=== PATIENT | female | born 1940 | race Caucasian/White ===

== ENCOUNTER 2024-04-02 22:22 | Emergency (ER) | payer MEDICARE, OTHER, SELFPAY ==
--- NOTE | ~2024-04-02 | XR_ITS ---
EXAMINATION: XR ANKLE, LEFT CLINICAL INFORMATION: Fall. Pain. COMPARISON: None available. TECHNIQUE: AP, lateral, and mortise views of the left ankle. FINDINGS: The bony structures are osteopenic. There is an undisplaced fracture of the distal fibula. There is also a undisplaced fracture through the medial tibial/medial tibial plateau. There is moderate soft tissue swelling about the ankle most pronounced laterally. XR/XR ankle LT min 3V IMPRESSION: 1. Fractures of the distal fibula and medial tibial/medial tibial plateau. 2. Osteopenia. 3. Soft tissue swelling.
[2024-04-02 22:55] VITALS: BP 120/86; PULSE 86; RESP 20; TEMP 37; O2SAT 100; BMI 17.6
--- NOTE | 2024-04-03 02:09 | ED_ITS ---
HPI - Extremity Injury (Lower) General Chief Complaint: Extremity Injury, Lower Stated Complaint: Lt ankle inj Time Seen by Provider: 04/03/24 01:50 Source: patient and family Mode of arrival: ambulatory Limitations: no limitations History of Present Illness HPI Narrative: 83 yo female with PMH of hypothyroidism, MS - uses WC does do some transfers and standing lost control of WC and hit left leg against wall no other injuries. Has swelling and pain. MD complaint: ankle injury Onset (ago): hour(s) (few) Injury: Left: ankle Type of Injury: blunt Place: home Severity: moderate Relieving factors: nothing Exacerbating factors: palpation Context: direct blow Associated symptoms: swelling Other symptoms: none Treatments prior to arrival: bandage Related Data Allergies Allergy/AdvReac Type Severity Reaction Status Date / Time sulfamethoxazole Allergy Rash Verified 04/02/24 22:59 [From Bactrim] tetracycline [From Tetracyn] Allergy Anaphylaxis Verified 04/02/24 22:59 trimethoprim [From Bactrim] Allergy Rash Verified 04/02/24 22:59 Review of Systems Review of Systems: Constitutional : No Fever, No Chills ENT/Mouth : No Ear Pain, No Hoarseness, No sore throat Eyes: No Eye Pain, No Swelling, No Redness, No Foreign Body Cardiovascular : No Chest Pain, No SOB Respiratory : No Cough, No Dyspnea Gastrointestinal : No Nausea, No Vomiting, No Diarrhea, No abdominal Pain Genitourinary : No Dysuria, No Hematuria Musculoskeletal : positive joint pain, No Myalgias, pos Joint Swelling Skin : No Skin lacerations, No rash Neuro : No Weakness, No Numbness, No Loss of Consciousness, No Dizziness, No Headache Psych : No Anxiety/Panic, No Depression All other systems reviewed and are negative [facility] Past Medical History Attestation statement: The following information was validated with the patient. Medical History Hypothyroidism Multiple sclerosis Social History Social History (Updated 04/03/24 @ 02:12 by Shanita Naqvi DO) Patient Tobacco Use Status: Never used Tobacco Advance Directives: No Advance Directives Information Provided: Yes Do you have a plan to hurt others: No Plan Physical Exam Vital Signs: Vital Signs: Last Vital Signs Temp 98.6 F 04/02/24 22:55 Pulse 86 04/02/24 22:55 Resp 20 05/13/24 22:55 BP 120/86 04/02/24 22:55 Pulse Ox 100 04/02/24 22:55 O2 Del Method Room Air 04/02/24 22:55 BMI result Body Mass Index 17.6 Appearance: Alert. Oriented X3. No acute distress. Eyes: Pupils equal, round and reactive to light. ENT: Pharynx normal. Neck: Normal inspection. Neck supple. CVS: Normal heart rate and rhythm. Pulses normal. Respiratory: No respiratory distress. Breath sounds normal. Abdomen: Soft and nontender. Skin: Skin warm and dry. Normal skin color. Normal skin turgor. Extremities: No lower extremity edema. L ankle small joint effusion - abrasion superficial lateral malleolus - pulses intact has chronic purpleish toes per patient and no knee or prox fibula ttp Neuro: Oriented X 3. No motor deficit. No sensory deficit. Medications Administered Discontinued Medications Generic Name Dose Route Start Last Admin Trade Name Freq PRN Reason Stop Dose Admin Ibuprofen 400 mg 04/03/24 02:06 04/03/24 02:12 Ibuprofen 400 Mg Tablet PO 04/03/24 02:07 400 mg ONCE ONE Administration Medical Decision Making Medical Decision Making MDM Narrative: 83 yo female with PMH of hypothyroidism, MS - uses WC does do some transfers and standing lost control of WC tonight hit L foot and ankle into wall pain on L ankle NV intact will need coverage of skin tear and will apply splint she is alert and oriented x 3 refusing rehab. She does not need emergent orthopedic surgery but refuses to stay despite mine and 's encouragement. Differential Diagnosis Differential Diagnoses: The differential diagnosis associated with the presentation includes sprain, strain, fracture Admission/Observation Consideration of admission/observation: Escalation of care including admission/observation considered refuses to stay for PT/CM rehab and further evaluation states she is going home tonight Independent Interpretation I performed an independent interpretation of an: Plain X-Ray (tibia and fibula fx) Radiology Impression Discussion of test interpretation with radiology: I have reviewed the radiologist's reading. Independent Historian Clinical information obtained from an independent historian. History obtained from or confirmed by: Spouse External Record Review External record reviewed: Outpatient record Procedures Orthopedic Splinting/Casting Injury #1: Side: left Lower Extremity Injury Location: ankle Lower Extremity Immobilizer: posterior splint and stirrup splint Additional Comments: NV intact covered skin tear with bacitracin and telfa dressing first Discharge Plan Discharge Clinical Impression: Ankle fracture Qualifiers: Encounter type: initial encounter Fracture type: closed Laterality: left Qualified Code(s): S82.892A - Other fracture of left lower leg, initial encounter for closed fracture Patient Disposition: Home, Self-Care Instructions: Ankle Fracture (ED) Additional Instructions: non weight bearing on that ankle. you were offered rehab but declined. return for severe pain, numbness, worsening color to the toes. splint cannot get wet. keep on until you see orthopedics. call orthopedics for appointment in the AM I sent a message to our case management about home VNA FINDINGS: The bony structures are osteopenic. There is an undisplaced fracture of the distal fibula. There is also a undisplaced fracture through the medial tibial/medial tibial plateau. There is moderate soft tissue swelling about the ankle most pronounced laterally. XR/XR ankle LT min 3V IMPRESSION: 1. Fractures of the distal fibula and medial tibial/medial tibial plateau. 2. Osteopenia. 3. Soft tissue swelling. Referrals: Lanette Weaver PA-C [Physician [employer]] - (call to schedule appointment) Print Language: Eritrean
[2024-04-03] MEDS: Ibuprofen 400 MG TABLET PO (02:12)
[2024-04-03 02:56] VITALS: BP 152/52; PULSE 72; RESP 15; TEMP 36.4; O2SAT 95
--- NOTE | 2024-04-03 03:01 | PC.NURSE ---
pt a&ox4, respirations even and unlabored. pt reports driving electric wheelchair into wall at home and reports left ankle pain. pt noted to have left ankle swelling, a skin tare to the left ankle and bruising to all 5 toes. at bedside placing soft cast for patinet. pt educated on not bearing weight to foot. pt assisted into car by this RN.
[2024-04-03 03:12] VITALS: BP 152/52; PULSE 72; RESP 15; TEMP 36.4; O2SAT 95
--- NOTE | 2024-04-03 09:51 | MHC.CM.ED ---
Received case management consult early this morning. Patient came to the ER due to left ankle pain. Found to have an ankle fracture. Did not want to stay but requesting VNA at home. Spoke with patient and her , Bao, via telephone at [phone]. Patient has a history of MS. Will need a wheelchair for mobility. Now has a ankle fracture. PCP verified as Tariq Yeh. Both requesting custodial and physical therapy. Patient has been active with [facility] in the past but is requesting referral to [facility]. Referral made via [facility]. Continue to monitor for d/c needs.
== END 2024-04-03 03:12 | disposition home or self-care (01) ==
PROVIDERS: Emergency Provider Emergency Medicine; PCP Internal Medicine
DX: S82.832A Other fracture of upper and lower end of left fibula, initial encounter for closed fracture (principal); S82.142A Displaced bicondylar fracture of left tibia, initial encounter for closed fracture; W22.8XXA Striking against or struck by other objects, initial encounter; Y93.9 Activity, unspecified; Y92.9 Unspecified place or not applicable; Y99.9 Unspecified external cause status; M25.572 Pain in left ankle and joints of left foot; Z99.3 Dependence on wheelchair
CPT/HCPCS: 29515; 73610; 99283; 99284

== ENCOUNTER 2024-04-05 08:34 | Outpatient (REF) | payer MEDICARE, OTHER, SELFPAY ==
--- NOTE | ~2024-04-05 | XR_ITS ---
EXAMINATION: XR ANKLE, LEFT CLINICAL INFORMATION: Pain in the ankle COMPARISON: X-rays of the left ankle 04/02/2024 TECHNIQUE: AP, lateral, and mortise views of the left ankle. FINDINGS: Nondisplaced medial intra-articular fracture extending through the medial tibial plafond and incomplete distal fracture of the lateral cortex distal fibula redemonstrated unchanged in appearance and alignment. Decreased soft tissue swelling XR/XR ankle LT min 3V IMPRESSION: Nondisplaced intra-articular fracture of the medial tibial plafond and incomplete fracture of the distal fibula redemonstrated unchanged in appearance and alignment.
== END 2024-04-05 08:35 | disposition home or self-care (01) ==
LOC: HO.HOSX 08:34
PROVIDERS: Visit Provider Physician Assistant
DX: S82.842A Displaced bimalleolar fracture of left lower leg, initial encounter for closed fracture (principal)
CPT/HCPCS: 27808; 73610; 99202

== ENCOUNTER 2024-04-05 09:18 | Outpatient (AMB) | payer MEDICARE, OTHER, SELFPAY ==
--- NOTE | 2024-04-05 10:20 | A.OFFVIS_ITS ---
Intake Visit Reasons: FC-LT ankle injury initial encounter for closed fC Intake Note: Lashell is a 83 year old female who presents today for a evaluation of her left ankle fx, DOI 04/03/24. Allergies sulfamethoxazole [From Bactrim] Allergy (Verified 04/02/24 22:59) Rash tetracycline [From Tetracyn] Allergy (Verified 04/02/24 22:59) Anaphylaxis trimethoprim [From Bactrim] Allergy (Verified 04/02/24 22:59) Rash HPI HPI FC-LT ankle injury initial encounter for closed fC: Details: 83-year-old female who presents in the office today, as a new patient, for an evaluation of left ankle pain. Patient presented to the ED on 04/03/2024 status post losing control of her wheelchair causing her to hit her left ankle and foot against the wall. Patient was given coverage (bacitracin and telfa dressing) for a skin tear and placed into a splint. She was encourage to remain non-weight bearing. She was offered rehab and declined. Patient is currently in a wheelchair and does some transfers and standing. Patient has a significant medical history of MS. [facility] Medical History Hypothyroidism Multiple sclerosis Social History (Updated 04/03/24 @ 02:12 by Shanita Naqvi DO) Patient Tobacco Use Status: Never used Tobacco Review of Systems Const All systems reviewed & are unremarkable except as noted in HPI and below Physical Exam Const General: cooperative and no acute distress Orientation/consciousness: patient oriented x3 Resp Effort & Inspection: normal respiratory effort and able to speak in complete sentences Cardio Peripheral pulses: Peripheral pulses 2+ throughout Skin General skin exam: no rashes or lesions noted Neuro General: patient oriented x3 Extrem Other: Left lower extremity: Notable muscle atrophy. Scattered ecchymosis from the anterior proximal tibia scattered to the ankle with severe ecchymosis in all digits. Able to slightly flex and extend. Sensation is diminished on the left side from her from her MS but is reported at baseline and a pedal pulse is intact Office Procedures Casting/Splints [id number] Leg Cast Application Procedure code (CPT) selection complete Fracture Care Fracture Billing Code: Fracture Billing Code Assessment & Plan Assessment & Plan (1) Bimalleolar fracture of left ankle: Code(s): S82.842A - Displaced bimalleolar fracture of left lower leg, initial encounter for closed fracture Category: Medical Plan Ms. Perez is a 83-year-old female who presents in the office today, as a new patient, for an evaluation of left ankle pain. Patient presented to the ED on 04/03/2024 status post losing control of her wheelchair causing her to hit her left ankle and foot against the wall. Patient was given coverage (bacitracin and telfa dressing) for a skin tear and placed into a splint. She was encourage to remain non-weight bearing. She was offered rehab and declined. Patient is currently in a wheelchair and does some transfers and standing. Patient has a significant medical history of MS. A nonstick dressing was applied to the skin tear while in the office today. She will be placed into a custom made short leg cast. Patient was educated on cast maintenance with instructions to keep the cast clean, dry, and intact. However, should the cast become wet, dirty, or there is a concern please call the office immediately for a cast change. She will remain non-weight bearing on the left lower extremity. Follow up will be in 4 weeks with cast off and repeat x-rays, or sooner if needed. Of note: The patient was insistent that she wished to go swimming and would be able to keep the cast dry with plastic wrapping. I strongly opposed this with the patient today and instructed her that she would need to remain out of the pool or hot tubes at this time. X-rays of the left ankle which were obtained while in the office today and were reviewed by me, Lanette Weaver PA-C, redemonstrated a nondisplaced bimalleolar fracture. X-rays of the left ankle, obtained on 04/03/2024, revealed: IMPRESSION: 1. Fractures of the distal fibula and medial tibial/medial tibial plateau. 2. Osteopenia. 3. Soft tissue swelling. Orders: Orders XR ankle LT min 3V Today M25.579 - Pain in unspecified ankle and joints of unspecified foot Patient Instructions: Scribed by Elly Mena biomedical engineering aide, for Lanette Weaver PA-C on 04/05/2024 at 11:00 am, EST. Coding Level of Care Code New Pt Level 4 (84896) Diagnoses Bimalleolar fracture of left ankle S82.842A CPT Codes Casting - CPT: [id number] Leg Cast Application ([id number]) Fracture Care - Fracture Billing Code: Fracture Billing Code ([id number])
== END 2024-04-05 11:05 | disposition home or self-care (01) ==
PROVIDERS: Visit Provider Physician Assistant
DX: S82.842A Displaced bimalleolar fracture of left lower leg, initial encounter for closed fracture (principal)
CPT/HCPCS: 27808; 99204

== ENCOUNTER 2024-04-06 15:47 | Outpatient (AMB) | payer MEDICARE, OTHER, SELFPAY ==
[2024-04-06 15:47] VITALS: BP 108/64; PULSE 78; O2SAT 96; BMI 18.7
--- NOTE | 2024-04-06 15:47 | AM.OFFWIN_ITS ---
Intake Vital Signs 04/06/24 15:47 Height 5 ft 4 in Weight 109 lb BMI 18.7 BP 108/64 Blood Pressure Location Rt brachial Position Sitting Pulse 78 Pulse Source Pulse Oximeter Pulse Oximetry (%) 96 Oxygen Delivery Method Room Air Intake Visit Reasons: TRY OUT PERSON lft shoulder injury pain Intake Note: Pt presents to the office today for c/o left shoulder pain for about a month. Her states that about 3 weeks ago she received a cortisone injection which might have been helping but states yesterday she slipped and hit her shoulder on her wheelchair and states now the pain is worse than before the cortisone injection. Patient Tobacco Use Status: Never used Tobacco Allergies sulfamethoxazole [From Bactrim] Allergy (Verified 04/06/24 15:53) Rash tetracycline [From Tetracyn] Allergy (Verified 04/06/24 15:53) Anaphylaxis trimethoprim [From Bactrim] Allergy (Verified 04/06/24 15:53) Rash HPI HPI Comments History of Present Illness Details 83 y/o female patient who presents to [facility] with c/o left shoulder pain after a fall. She does have chronic shoulder pain, and she is currently receiving Cortisone Injections, last dose 3 weeks ago. [facility] Medical History Hypothyroidism Multiple sclerosis Social History (Updated 04/03/24 @ 02:12 by Shanita Naqvi DO) Patient Tobacco Use Status: Never used Tobacco Review of Systems Const All systems reviewed & are unremarkable except as noted in HPI and below Physical Exam Vital Signs: Last Vital Signs Pulse 78 04/06/24 15:47 BP 108/64 04/06/24 15:47 Pulse Ox 96 04/06/24 15:47 Oxygen Delivery Method Room Air 04/06/24 15:47 BMI result Body Mass Index 18.7 Const General: no acute distress Orientation/consciousness: patient oriented x3 Limitations: wheelchair Neuro General: patient oriented x3 Extrem Right upper extremity: normal to inspection and full ROM Left upper extremity: shoulder/upper arm Details: tenderness and abnormal ROM Details: pain with active ROM and pain with passive ROM Psych Speech and movement: Normal speech and movement present Assessment & Plan Assessment & Plan (1) Left shoulder pain: Code(s): M25.512 - Pain in left shoulder Qualifiers: Chronicity: acute Qualified Code(s): M25.512 - Pain in left shoulder Plan: - Xray ordered - Acetaminophen or Ibuprofen for pain relief - Shoulder Immobilizer - IceHot - Rest joint Orders: Orders XR shoulder LT min 2V Today M25.512 - Pain in left shoulder Coding Level of Care Code Est Pt Level 4 (46510) Diagnoses Acute pain of left shoulder M25.512 Chronicity: acute Time Spent (min) 20
== END 2024-04-06 16:48 | disposition home or self-care (01) ==
PROVIDERS: PCP Internal Medicine; Visit Provider Nurse Practitioner Family
DX: M25.512 Pain in left shoulder (principal)
CPT/HCPCS: 99214

== ENCOUNTER 2024-04-06 16:04 | Outpatient (REF) | payer MEDICARE, OTHER, SELFPAY ==
--- NOTE | ~2024-04-06 | XR_ITS ---
EXAMINATION: XR SHOULDER, LEFT CLINICAL INFORMATION: Pain COMPARISON: None available. TECHNIQUE: 2 views frontal and scapular view of the left shoulder. FINDINGS: The bones and soft tissues are normal. Mild DJD AC joint. No fracture. Glenohumeral and acromioclavicular alignment is anatomic with normal joint space. No abnormal soft tissue calcifications. XR/XR shoulder LT min 2V IMPRESSION: No radiographic evidence of acute fracture or dislocation. Mild DJD AC joint.
== END 2024-04-06 16:05 | disposition home or self-care (01) ==
LOC: HO.HMGCX 16:04
PROVIDERS: PCP Internal Medicine; Visit Provider Nurse Practitioner Family
DX: M25.512 Pain in left shoulder (principal)
CPT/HCPCS: 73030

== ENCOUNTER 2024-04-23 11:00 | Outpatient (AMB) | payer MEDICARE, OTHER, SELFPAY ==
--- NOTE | 2024-04-23 11:29 | A.OFFVIS_ITS ---
Vital Signs 04/23/24 11:47 Height 5 ft 4 in Weight 109 lb BMI 18.7 Intake Visit Reasons: New prob left shoulder s/p falling on 04/05/24/ Intake Note: Lashell an 83 year old female who presents today with her daughter for an evaluation of left shoulder, DOI 04/05/24. Patient reports that she fell on an outstretched arm, she presented to [facility] walk in clinic where xrays were taken and referred to orthopedics. States pain is located in her bicep area. She does mention shoulder discomfort prior to fall. Hx of cortisone injection 02/2024. She is requesting to proceed with PT if appropriate. Denies numbness or tingling. Allergies sulfamethoxazole [From Bactrim] Allergy (Verified 04/23/24 11:47) Rash tetracycline [From Tetracyn] Allergy (Verified 04/23/24 11:47) Anaphylaxis trimethoprim [From Bactrim] Allergy (Verified 04/23/24 11:47) Rash HPI HPI New prob left shoulder s/p falling on 04/05/24/: Details: 83-year-old left hand dominant female who presents in the office today for an evaluation of left shoulder pain. Patient was seen in the Walk-in clinic on 04/06/2024 with a complaint of left shoulder pain status post a fall hitting a wheelchair on 04/05/2024. The patient?s reports the patient received a cortisone injection 3 weeks prior to the fall, around the week of 03/12/2024- 03/16/2024. X-rays were obtained. She was placed in a shoulder immobilizer. While in the office today the patient reports having discomfort in the left shoulder prior to the fall. She reports falling on an outstretched left upper extremity. She denies numbness or tingling. She confirms having a cortisone injection in 02/2024. She is interested in attending physical therapy. Patient presents in the office today with her daughter. [facility] Medical History Hypothyroidism Multiple sclerosis Social History Patient Tobacco Use Status: Never used Tobacco Review of Systems Const All systems reviewed & are unremarkable except as noted in HPI and below Physical Exam Vital Signs: BMI result Body Mass Index 18.7 Const General: cooperative and no acute distress Orientation/consciousness: patient oriented x3 Resp Effort & Inspection: normal respiratory effort and able to speak in complete sen tences Cardio Peripheral pulses: Peripheral pulses 2+ throughout Skin General skin exam: no rashes or lesions noted Neuro General: patient oriented x3 Extrem Other: Left shoulder: Camilo deformity noted left bicep. Full ROM at the elbow. Slight tenderness to palpation along the bicep muscle body. NVI. Assessment & Plan Assessment & Plan (1) Labral tear of long head of left biceps tendon: Code(s): S46.112A - Strain of muscle, fascia and tendon of long head of biceps, left arm, initial encounter Category: Medical Plan Ms. Perez is an 83-year-old left hand dominant female who presents in the office today for an evaluation of left shoulder pain. Patient was seen in the Walk-in clinic on 04/06/2024 with a complaint of left shoulder pain status post a fall hitting a wheelchair on 04/05/2024. The patient?s reports the patient received a cortisone injection 3 weeks prior to the fall, around the week of 03/12/2024-03/16/2024. X-rays were obtained. She was placed in a shoulder immobilizer. While in the office today the patient reports having discomfort in the left shoulder prior to the fall. She reports falling on an outstretched left upper extremity. She denies numbness or tingling. She confirms having a cortisone injection in 02/2024. She is interested in attending physical therapy. Patient presents in the office today with her daughter. An order for occupational and physical therapy was placed in the office today to work on ROM and strengthening of the left upper extremity. Follow-up will be PRN, or sooner if needed. Scribed by Elly Mena medical records administrator, for Lanette Weaver PA-C on 04/23/2024 at 11:04 am, EST. X-rays of the left shoulder, obtained on 04/06/2024, revealed: 1. No radiographic evidence of acute fracture or dislocation. 2. Mild DJD AC joint. Orders: Orders OT Evaluation and Treatment Today S46.112A - Strain of muscle, fascia and tendon of long head of biceps, left arm, initial encounter PT Evaluation and Treatment Today S46.112A - Strain of muscle, fascia and tendon of long head of biceps, left arm, initial encounter Patient Instructions: Scribed by Elly Mena medical records administrator, for Lanette Weaver PA-C on 04/23/2024 at 11:04 am, EST. Coding Level of Care Code Est Pt Level 3 (44155) Diagnoses Labral tear of long head of left biceps tendon S46.112A
[2024-04-23 11:47] VITALS: BMI 18.7
== END 2024-04-23 11:45 | disposition home or self-care (01) ==
PROVIDERS: PCP Internal Medicine; Visit Provider Physician Assistant
DX: S46.112A Strain of muscle, fascia and tendon of long head of biceps, left arm, initial encounter (principal)
CPT/HCPCS: 99213

== ENCOUNTER → 2024-04-23 11:00 | Outpatient (BNVA) | payer MEDICARE, OTHER, SELFPAY | PROVIDERS: PCP Internal Medicine; Visit Provider Physician Assistant | DX: S46.112A Strain of muscle, fascia and tendon of long head of biceps, left arm, initial encounter (principal); W01.198A Fall on same level from slipping, tripping and stumbling with subsequent striking against other object, initial encounter; Y93.01 Activity, walking, marching and hiking; Y92.9 Unspecified place or not applicable; Y99.9 Unspecified external cause status | CPT/HCPCS: 99212 ==

== ENCOUNTER 2024-05-04 08:50 | Outpatient (AMB) | payer MEDICARE, OTHER, SELFPAY ==
--- NOTE | 2024-05-04 08:52 | A.OFFVIS_ITS ---
Intake Visit Reasons: OV-LT ankle injury initial encounter for closed fC Intake Note: Lashell is an 83 year old female who presents to the office today for LT ankle injury 4 week follow up. Pt states she does not have any more pain. Cast removed and Xrays updated. Allergies sulfamethoxazole [From Bactrim] Allergy (Verified 05/04/24 08:52) Rash tetracycline [From Tetracyn] Allergy (Verified 05/04/24 08:52) Anaphylaxis trimethoprim [From Bactrim] Allergy (Verified 05/04/24 08:52) Rash HPI HPI OV-LT ankle injury initial encounter for closed fC: Details: 83-year-old left hand dominant female who presents in the office today for a follow-up of a left ankle bimalleolar fracture which occurred on 04/03/2024 status post losing control of her wheelchair causing her to hit her left ankle and foot against the wall. I last saw the patient in the office on 04/05/2024 when the skin tear was dressed with a non-stick gauze and she was placed in a short leg cast. She was instructed to remain non-weight bearing. While in the office today the patient reports she is out of her pain medication. Patient is currently in a wheelchair and does some transfers and standing. Patient has a significant medical history of MS. Patient is accompanied in the office by her . [facility] Medical History Hypothyroidism Multiple sclerosis Social History Patient Tobacco Use Status: Never used Tobacco Review of Systems Const All systems reviewed & are unremarkable except as noted in HPI and below Physical Exam Const General: cooperative, healthy appearing and no acute distress Resp Effort & Inspection: normal respiratory effort and able to speak in complete sentences Cardio Rate: regular rate Peripheral pulses: Peripheral pulses 2+ throughout GI Palpation (GI): Soft to palpation Skin Lesions: no lesions Rashes: no rashes Extrem Other: Left lower extremity: Notable muscle atrophy. Scattered ecchymosis from the anterior proximal tibia scattered to the ankle with severe ecchymosis in all digits. Able to slightly flex and extend. Sensation is diminished on the left side from her from her MS but is reported at baseline and a pedal pulse is intact. Vascular changes noted. Office Procedures Casting/Splints 77931-Nhxof Leg Cast Application Procedure code (CPT) selection complete Assessment & Plan Assessment & Plan (1) Bimalleolar fracture of left ankle: Code(s): S82.842A - Displaced bimalleolar fracture of left lower leg, initial encounter for closed fracture Category: Medical Plan Ms. Perez is an 83-year-old left hand dominant female who presents in the office today for a follow-up of a left ankle bimalleolar fracture which occurred on 04/03/2024 status post losing control of her wheelchair causing her to hit her left ankle and foot against the wall. I last saw the patient in the office on 04/05/2024 when the skin tear was dressed with a non-stick gauze and she was placed in a short leg cast. She was instructed to remain non-weight bearing. While in the office today the patient reports she is out of her pain medication. Patient is currently in a wheelchair and does some transfers and standing. Patient has a significant medical history of MS. Patient is accompanied in the office by her . The patient presents in the office today with her and again is asking if she can go swimming. However, x-rays obtained in the office today reveal minimal healing of the left bimalleolar fracture. Therefore, she needs to be placed into another custom-made cast and to remain non-weight bearing. Again, we discussed no swimming in the cast. However, it seems the patient will try to go despite my strong recommendation. The patient was re-educated on cast maintenance with instructions to keep the cast clean, dry, and intact. However, should the cast become wet, dirty, or there is a concern please call the office immediately for a cast change. I strongly educated them that should the cast become wet by any significant means they should reach out to the office immediately for a cast change. If this occurs on the weekend she will have to present to the ED. Both the patient and her demonstrate understanding. She does have vascular skin changes in all digits, which is her baseline. I explained to them with the exam findings this puts her at an extreme risk of infection and delayed healing. They were educated on signs of infection, which are as follows but not limited to erythema, edema, drainage, or warmth. If she is to experience any of these symptoms, she must contact the office immediately or present to the ED. They again demonstrated understanding but will likely proceed with swimming. Follow- up will be in four weeks, or sooner if needed. X-rays of the left ankle which were obtained while in the office today and were reviewed by me, Lanette Weaver PA-C, revealed minimal healing of the bimalleol ar fracture. Orders: Orders XR ankle LT min 3V Today M25.579 - Pain in unspecified ankle and joints of unspecified foot Patient Instructions: Scribed by Elly Mena medical billing representative, for Lanette Weaver PA-C on 05/04/2024 at 8:58 am, EST. Coding Level of Care Code Global (50161) Diagnoses Bimalleolar fracture of left ankle S82.842A CPT Codes Casting - CPT: 76646-Hqbos Leg Cast Application ([id number])
== END 2024-05-04 09:59 | disposition home or self-care (01) ==
PROVIDERS: PCP Internal Medicine; Visit Provider Physician Assistant
DX: S82.842A Displaced bimalleolar fracture of left lower leg, initial encounter for closed fracture (principal)
CPT/HCPCS: 29405; 99024

== ENCOUNTER 2024-05-04 08:50 | Outpatient (REF) | payer MEDICARE, OTHER, SELFPAY ==
--- NOTE | ~2024-05-04 | XR_ITS ---
EXAMINATION: XR ANKLE, LEFT CLINICAL INFORMATION: Pain in ankle joints COMPARISON: Prior x-rays of left ankle most recent March 2024.. TECHNIQUE: AP, lateral, and mortise views of the left ankle. FINDINGS: The fractures of the distal tibia and fibula redemonstrated with unchanged alignment. Surrounding soft tissues unremarkable. XR/XR ankle LT min 3V IMPRESSION: Stable appearance of distal tibia and fibular fractures.
== END 2024-05-04 08:51 | disposition home or self-care (01) ==
LOC: HO.HOSX 08:50
PROVIDERS: PCP Internal Medicine; Visit Provider Physician Assistant
DX: S82.842A Displaced bimalleolar fracture of left lower leg, initial encounter for closed fracture (principal); W22.01XA Walked into wall, initial encounter; Y93.89 Activity, other specified; Y92.9 Unspecified place or not applicable; Y99.9 Unspecified external cause status
CPT/HCPCS: 29405; 73610; 99212

== ENCOUNTER 2024-05-07 09:26 | Outpatient (AMB) | payer MEDICARE, OTHER, SELFPAY ==
--- NOTE | 2024-05-07 09:27 | MHC.OFFVIS ---
Intake Visit Reasons: OV-T ankle injury fx, cast changed Intake Note: Lashell is a 83 year old female who presents today for a cast change to due to going for a swim and got it wet. She states that she has her cast double covered. Allergies sulfamethoxazole [From Bactrim] Allergy (Verified 05/07/24 09:28) Rash tetracycline [From Tetracyn] Allergy (Verified 05/07/24 09:28) Anaphylaxis trimethoprim [From Bactrim] Allergy (Verified 05/07/24 09:28) Rash HPI HPI OV-T ankle injury fx, cast changed: Details: 83-year-old left hand dominant female who presents in the office today for a cast change due to getting the cast wet when she went swimming. The patient is being followed for a left ankle bimalleolar fracture, which occurred on 04/03/2024 status post losing control of her wheelchair causing her to hit her left ankle and foot against the wall. While in the office today the patient stated she had the cast ?double covered? while she went swimming. [facility] Medical History Hypothyroidism Multiple sclerosis Social History Patient Tobacco Use Status: Never used Tobacco Review of Systems Const All systems reviewed & are unremarkable except as noted in HPI and below Physical Exam Const General: cooperative, healthy appearing and no acute distress Resp Effort & Inspection: normal respiratory effort and able to speak in complete sentences Cardio Rate: regular rate Peripheral pulses: Peripheral pulses 2+ throughout GI Palpation (GI): Soft to palpation Skin Lesions: no lesions Rashes: no rashes Extrem Other: Left lower extremity: Notable muscle atrophy. Scattered ecchymosis from the anterior proximal tibia scattered to the ankle with severe ecchymosis in all digits. Able to slightly flex and extend. Sensation is diminished on the left side from her from her MS but is reported at baseline and a pedal pulse is intact. Vascular changes noted. Office Procedures Casting/Splints 43510-Uprgz Leg Cast Application Procedure code (CPT) selection complete Assessment & Plan Assessment & Plan (1) Bimalleolar fracture of left ankle: Code(s): S82.842A - Displaced bimalleolar fracture of left lower leg, initial encounter for closed fracture Category: Medical Plan Ms. Perez is a 83-year-old left hand dominant female who presents in the office today for a cast change due to getting the cast wet when she went swimming. The patient is being followed for a left ankle bimalleolar fracture, which occurred on 04/03/2024 status post losing control of her wheelchair causing her to hit her left ankle and foot against the wall. While in the office today the patient stated she had the cast ?double covered? while she went swimming. The patient was placed in a new custom-made short leg cast while in the office today. The patient was again educated on cast maintenance with instructions to keep the cast clean, dry, and intact. However, should the cast become wet, dirty, or there is a concern please call the office immediately for a cast change. I again strongly encouraged the patient that she cannot go swimming until she is out of the cast. She demonstrates good understanding. Follow-up will be at her regularly scheduled appointment. Patient Instructions: Scribed by Elly Mena senior medical billing specialist, for Lanette Weaver PA-C on 05/07/2024 at 9:28 AM, EST. Coding Level of Care Code Procedure Only Diagnoses Bimalleolar fracture of left ankle S82.842A CPT Codes Casting - CPT: 01921-Ydtmt Leg Cast Application ([id number])
== END 2024-05-07 10:41 | disposition home or self-care (01) ==
PROVIDERS: PCP Internal Medicine; Visit Provider Physician Assistant
DX: S82.842A Displaced bimalleolar fracture of left lower leg, initial encounter for closed fracture (principal)
CPT/HCPCS: 29405

== ENCOUNTER → 2024-05-07 09:26 | Outpatient (BNVA) | payer MEDICARE, OTHER, SELFPAY | PROVIDERS: PCP Internal Medicine; Visit Provider Physician Assistant | DX: S82.842A Displaced bimalleolar fracture of left lower leg, initial encounter for closed fracture (principal) | CPT/HCPCS: 29405 ==

== ENCOUNTER 2024-06-05 07:48 | Outpatient (REF) | payer MEDICARE, OTHER, SELFPAY ==
--- NOTE | ~2024-06-05 | XR_ITS ---
EXAMINATION: XR ANKLE, LEFT CLINICAL INFORMATION: Pain. COMPARISON: None TECHNIQUE: AP, lateral, and mortise views of the left ankle. FINDINGS: Redemonstration of fractures of the distal tibia and fibula with similar alignment. There has been some bridging callus formation. Diffuse demineralization. Persistent soft tissue swelling and joint effusion. XR/XR ankle LT min 3V IMPRESSION: Redemonstration of fractures of the distal tibia and fibula with similar alignment. There has been some bridging callus formation.
== END 2024-06-05 07:49 | disposition home or self-care (01) ==
LOC: HO.HOSX 07:48
PROVIDERS: Visit Provider Physician Assistant
DX: M25.572 Pain in left ankle and joints of left foot (principal); S82.842D Displaced bimalleolar fracture of left lower leg, subsequent encounter for closed fracture with routine healing; V00.81 Accident with wheelchair (powered)
CPT/HCPCS: 73610; 99212

== ENCOUNTER 2024-06-05 10:22 | Outpatient (AMB) | payer MEDICARE, OTHER, SELFPAY ==
--- NOTE | 2024-06-05 10:43 | A.OFFVIS_ITS ---
Intake Visit Reasons: OV-LT ankle injury fx, cast removal per Intake Note: Lashell is a 83 year old female who presents today with her daughter for an evaluation of left shoulder, DOI 04/05/24. Patient reports she is doing well, no pain to discomfort. Allergies sulfamethoxazole [From Bactrim] Allergy (Verified 06/05/24 10:47) Rash tetracycline [From Tetracyn] Allergy (Verified 06/05/24 10:47) Anaphylaxis trimethoprim [From Bactrim] Allergy (Verified 06/05/24 10:47) Rash HPI HPI OV-LT ankle injury fx, cast removal per : Details: 83-year-old left hand dominant female who presents in the office today for a follow-up of a left bimalleolar fracture, which occurred on 05/07/2024 status post losing control of her wheelchair causing her to hit her left ankle and foot against the wall. I last saw the patient in the office on 05/07/2024 she was placed in a new short leg cast.? ? While in the office today, the patient reports she is doing great. She denies any pain at this time.? [facility] Medical History Hypothyroidism Multiple sclerosis Social History Patient Tobacco Use Status: Never used Tobacco Review of Systems Const All systems reviewed & are unremarkable except as noted in HPI and below Physical Exam Const General: cooperative, healthy appearing and no acute distress Resp Effort & Inspection: normal respiratory effort and able to speak in complete sentences Cardio Rate: regular rate Peripheral pulses: Peripheral pulses 2+ throughout GI Palpation (GI): Soft to palpation Skin Lesions: no lesions Rashes: no rashes Extrem Other: Left lower extremity: Notable muscle atrophy. discoloration in all digits, normal baseline from prior injury. Able to slightly flex and extend. Sensation is diminished on the left side from her from her MS but is reported at baseline and a pedal pulse is intact. Vascular changes noted. Assessment & Plan Assessment & Plan (1) Bimalleolar fracture of left ankle: Code(s): S82.842A - Displaced bimalleolar fracture of left lower leg, initial encounter for closed fracture Category: Medical Plan Ms. Perez is a 83-year-old left hand dominant female who presents in the office today for a follow-up of a left bimalleolar fracture, which occurred on 05/07/2024 status post losing control of her wheelchair causing her to hit her left ankle and foot against the wall. I last saw the patient in the office on 05/07/2024 she was placed in a new short leg cast.? ? While in the office today, the patient reports she is doing great. She denies any pain at this time.? ? The patient will be transitioned to a tall walking boot, off the shelf. We discussed she can weight bear as tolerated while in the boot. She can remove the boot for swimming and when sleeping. When in the pool I asked the patient to exercise additional caution. She demonstrated understanding of this plan. Should she have increased pain she was asked to discontinue weight bearing and to call the office. My business card was supplied to the patient while in the office today. Follow-up will be in 6 weeks with x-rays, or sooner if needed. ? ? X-rays of the left ankle which were obtained while in the office today and were reviewed by me, Lanette Weaver PA-C, revealed routine healing of a right bimalleolar fracture.? Orders: Orders XR ankle LT min 3V Today M25.579 - Pain in unspecified ankle and joints of unspecified foot Patient Instructions: Scribed by Elly Mena, medical front desk specialist, for Lanette Weaver PA-C on 06/05/2024 at 10:24 am, EST.? Coding Level of Care Code Global (81277) Diagnoses Bimalleolar fracture of left ankle S82.842A
== END 2024-06-05 11:15 | disposition home or self-care (01) ==
PROVIDERS: PCP Internal Medicine; Visit Provider Physician Assistant
DX: S82.842A Displaced bimalleolar fracture of left lower leg, initial encounter for closed fracture (principal)
CPT/HCPCS: 99024

== ENCOUNTER 2024-07-17 10:12 | Outpatient (REF) | payer MEDICARE, OTHER, SELFPAY ==
--- NOTE | ~2024-07-17 | XR_ITS ---
EXAMINATION: XR ANKLE, LEFT CLINICAL INFORMATION: Left ankle and foot pain. COMPARISON: Most recent left ankle radiographs dated 06/05/2024. TECHNIQUE: AP, lateral, and mortise views of the left ankle. FINDINGS: Nondisplaced fractures through the distal fibula and medial malleolus in unchanged anatomic alignment. Interval increase in sclerosis along the fracture lines with partial osseous bridging. Exact degree of osseous bridging cannot be determined on plain radiographs. The ankle mortise is maintained. No concerning lytic or blastic osseous lesion. Osteopenia appears slightly more prominent. Circumferential soft tissue swelling. XR/XR ankle LT min 3V IMPRESSION: 1. Distal fibular and medial malleolar fractures in unchanged anatomic alignment with interval increase in sclerosis along the fracture lines. Exact degree of osseous bridging cannot be determined on plain radiographs. 2. Circumferential soft tissue swelling. Electronically signed by: Tito Euceda MD 08/06/2024 09:07 PM EDT
== END 2024-07-17 10:13 | disposition home or self-care (01) ==
LOC: HO.HOSX 10:12
PROVIDERS: Visit Provider Physician Assistant
DX: M25.572 Pain in left ankle and joints of left foot (principal); S82.842D Displaced bimalleolar fracture of left lower leg, subsequent encounter for closed fracture with routine healing
CPT/HCPCS: 73610; 99212

== ENCOUNTER 2024-07-17 10:41 | Outpatient (AMB) | payer MEDICARE, OTHER, SELFPAY ==
--- NOTE | 2024-07-17 10:47 | A.OFFVIS_ITS ---
Vital Signs 07/17/24 10:49 Height 5 ft 4 in Weight 109 lb BMI 18.7 Intake Visit Reasons: OV - left ankle fx, DOI 04/05/24 Intake Note: Lashell is a 83 year old female who presents today with her daughter for an evaluation of left ankle fx, DOI 04/05/24. Patient reports no pain at the moment. She mentions that sometimes she has some soreness around the ankle. Allergies sulfamethoxazole [From Bactrim] Allergy (Verified 07/17/24 10:48) Rash tetracycline [From Tetracyn] Allergy (Verified 07/17/24 10:48) Anaphylaxis trimethoprim [From Bactrim] Allergy (Verified 07/17/24 10:48) Rash HPI HPI OV - left ankle fx, DOI 04/05/24: Details: 83-year-old left hand dominant female who presents in the office today for a follow-up of a left bimalleolar fracture, which occurred on 05/07/2024 status post losing control of her wheelchair causing her to hit her left ankle and foot against the wall. I last saw the patient in the office on 06/05/24 when she was transitioned to a tall walking boot and able to weight bear as tolerated in the boot. ? ? While in the office today, the patient reports no pain but does have occasional soreness. ? [facility] Medical History Hypothyroidism Multiple sclerosis Social History Patient Tobacco Use Status: Never used Tobacco Review of Systems Const All systems reviewed & are unremarkable except as noted in HPI and below Physical Exam Vital Signs: BMI result Body Mass Index 18.7 Const General: cooperative, healthy appearing and no acute distress Resp Effort & Inspection: normal respiratory effort and able to speak in complete sentences Cardio Rate: regular rate Peripheral pulses: Peripheral pulses 2+ throughout GI Palpation (GI): Soft to palpation Skin Lesions: no lesions Rashes: no rashes Extrem Other: Left lower extremity: Notable muscle atrophy. discoloration in all digits, normal baseline from prior injury. Able to dorsiflex and plantarflex fully. Sensation is diminished on the left side from her from her MS but is reported at baseline and a pedal pulse is intact. Vascular changes to the skin noted. Assessment & Plan Assessment & Plan (1) Bimalleolar fracture of left ankle: Code(s): S82.842A - Displaced bimalleolar fracture of left lower leg, initial encounter for closed fracture Category: Medical Plan Ms. Perez is an 83-year-old left hand dominant female who presents in the office today for a follow-up of a left bimalleolar fracture, which occurred on 05/07/2024 status post losing control of her wheelchair causing her to hit her left ankle and foot against the wall. I last saw the patient in the office on 06/05/24 when she was transitioned to a tall walking boot and able to weight bear as tolerated in the boot. ? ? While in the office today, the patient reports no pain but does have occasional soreness.? ? The patient may discontinue the use of the boot at this time. Should the patient have any increased pain she should return to the boot immediately and contact the office promptly for a follow-up. She will continue to work with physical therapy on ROM and gait training for transfers, as this is her baseline. Follow- up will be PRN, or sooner if needed. ? ? X-rays of the left ankle which were obtained while in the office today and were reviewed by me, Lanette Weaver PA-C, revealed routine healing of a left ankle bimalleolar fracture. ? Orders: Orders XR ankle LT min 3V Today M25.579 - Pain in unspecified ankle and joints of unspecified foot PT Evaluation and Treatment Today S82.842A - Displaced bimalleolar fracture of left lower leg, initial encounter for closed fracture Patient Instructions: Scribed by Elly Mena medical imaging technologist, for Lanette Weaver PA-C on 07/17/2024 at 10:55 am, EST.? Coding Level of Care Code Global (40748) Diagnoses Bimalleolar fracture of left ankle S82.842A
[2024-07-17 10:49] VITALS: BMI 18.7
== END 2024-07-17 10:53 | disposition home or self-care (01) ==
PROVIDERS: PCP Internal Medicine; Visit Provider Physician Assistant
DX: S82.842A Displaced bimalleolar fracture of left lower leg, initial encounter for closed fracture (principal)
CPT/HCPCS: 99213

== ENCOUNTER 2024-10-03 13:00 | Outpatient (RCR) | payer MEDICARE, OTHER, SELFPAY ==
--- NOTE | 2024-09-10 14:31 | MHC.PT.EP ---
[facility] Office [place] Office [place] Office [address] Darlene Abernathy [address] [phone] F: [phone] F: [phone] F: [phone] F: [phone] Physical Therapy Plan of Care Date of Evaluation: 09/10/24 Date of Surgery: Diagnosis: bimalleolar fracture of L ankle Assessment: Patient is a 83 year old R handed female who presents with s/s consistent with bimalleolar fracture of left ankle. She does not work and is fairly sedentary. She was able to walk 25 feet in the house with rollator from one room to the next. Patient past medical history includes MS. Current impairments include pain, posture, balance, ROM, strength, activity tolerance and functional mobility. Functional limitations include decreased ability to stand, transfers, perform bed mobility, dress, walk, access areas of her home, and be on feet for more than 1 minute. Patient is motivated with good rehab potential. Skilled PT will address impairments and functional limitations in order to achieve goals. Frequency and Duration: The patient will be seen 2x/week for 5 weeks Short Term Goals: I with HEP - 2 weeks AROM eversion to 12 - 3 weeks Strength ankle 4-/5 grossly - 3 weeks Mattress Filling Machine Tender Goals: LEFS 55/80 - 5 weeks Able to amb 50 feet with rollator before break - 5 weeks SBA with sit <> stand - 5 weeks Treatment Plan: Modalities to reduce pain, spasms and effusion. Manual therapy to restore motion and function. Therapeutic exercise to improve strength and flexibility. Neuromuscular re-education for posture and balance. Therapeutic activities to return to functional activities of daily living. Electronically signed by: Romario Dotson, PT Please sign and return to therapist. Thank you for your referral.
--- NOTE | 2025-02-08 07:36 | MHC.PT.DC ---
[facility] [place] Office [place] Office [place] Office [address] Darlene Abernathy [address] [phone] F: [phone] F: [phone] F: [phone] F: [phone] Physical Therapy Discharge Report Diagnosis: bimalleolar fracture of L ankle Date of Surgery: Date of Evaluation: 09/10/24 Date of Discharge: 11/10/24 Treatments to Date: 4 Cancellations to Date: No Shows to Date: Discharge Status: Patient Elected to Stop Discharge Summary: 10/03/24: pt progressing well overall. increased intensity on stepper, increased challenge with therex and balance. continue to progress as tolerated. required a bit of encouragement today. 09/25/24: pt progressed with ex today. gait training advanced today. pt responding well. continue to progress with skilled PT. 09/21/24: pt progressing well with skilled PT. added strength, ROM, balance intervention with no adverse reactions aside from fatigue. Patient is a 83 year old R handed female who presents with s/s consistent with bimalleolar fracture of left ankle. She does not work and is fairly sedentary. She was able to walk 25 feet in the house with rollator from one room to the next. Patient past medical history includes MS. Current impairments include pain, posture, balance, ROM, strength, activity tolerance and functional mobility. Functional limitations include decreased ability to stand, transfers, perform bed mobility, dress, walk, access areas of her home, and be on feet for more than 1 minute. Patient is motivated with good rehab potential. Skilled PT will address impairments and functional limitations in order to achieve goals. Electronically signed by: Romario Dotson, PT Please sign and return to therapist. Thank you for your referral.
== END 2025-02-08 07:37 | disposition home or self-care (01) ==
LOC: HO.PTCHIC 13:00
PROVIDERS: PCP Internal Medicine; Visit Provider Physician Assistant
DX: S82.842D Displaced bimalleolar fracture of left lower leg, subsequent encounter for closed fracture with routine healing (principal)
CPT/HCPCS: 97110; 97112; 97116; 97163

== ENCOUNTER 2024-10-13 16:41 | Emergency (ER) | payer MEDICARE, OTHER, SELFPAY ==
--- NOTE | ~2024-10-13 | XR_ITS ---
EXAMINATION: XR CHEST CLINICAL INFORMATION: sob COMPARISON: None available. TECHNIQUE: Upright portable AP view of the chest was obtained. FINDINGS: The study is somewhat limited by portable technique, rotation, and kyphotic positioning. There is no acute radiographic finding. No focal infiltrate, effusion, or pneumothorax is seen. The cardiac silhouette appears normal in size. Aorta is mildly atherosclerotic. Mild degenerative changes of the spine. XR/XR chest 1V IMPRESSION: No acute finding. Electronically signed by: Dionte Krueger MD 10/13/2024 06:43 PM YANDEL HAY
[2024-10-13 16:44] VITALS: BP 124/39; PULSE 94; RESP 18; TEMP 36.5; O2SAT 97; BMI 18.0
--- NOTE | 2024-10-13 16:44 | ED_ITS ---
HPI - SOB/Dyspnea General Chief Complaint: Arrhythmia/Palpitations Stated Complaint: sob, rapid heart rate Time Seen by Provider: 10/13/24 17:14 Source: patient Mode of arrival: ambulatory Limitations: no limitations History of Present Illness ED Provider: anastasia BELCHER Narrative: Patient's history of paroxysmal AFib, multiple sclerosis not on any anticoagulant not on any AFib medications does have increased risk of fall last episode was few years ago short lasted whenever she gets C diff infection this time patient did not have any diarrhea or abdominal pain palpitation started she woke up in the morning 08:00 o'clock lasted for 6-7 hours with heart rate in 160s with slight shortness a breath by the time patient came to the ER broken to normal sinus rhythm no fever no chills no chest not on any prednisone lab workup showed WBC count of 161 1000 with 22% bands with premature cells no abdominal pain no fever no chills Related Data Home Medications ?Medication ?Instructions ?Recorded ?Confirmed buprenorphine 12 mg-naloxone 3 mg film sublingual 04/06/24 sublingual film duloxetine 60 mg capsule,delayed 120 mg PO DAILY 04/06/24 release levothyroxine 125 mcg tablet 125 mcg PO DAILY 04/06/24 (Synthroid) methenamine hippurate 1 gram tablet 1 g PO BID 04/06/24 ondansetron HCl 4 mg tablet 4 mg PO Q8H PRN 04/06/24 Allergies Allergy/AdvReac Type Severity Reaction Status Date / Time sulfamethoxazole Allergy Rash Verified 10/13/24 16:47 [From Bactrim] tetracycline [From Tetracyn] Allergy Anaphylaxis Verified 10/13/24 16:47 trimethoprim [From Bactrim] Allergy Rash Verified 10/13/24 16:47 Review of Systems 2 Review of Systems: Yes all other systems are reviewed and are negative [facility] Past Medical History Medical History Hypothyroidism Multiple sclerosis Social History Social History Patient Tobacco Use Status: Never used Tobacco Advance Directives: No Advance Directives Information Provided: Yes Do you have a plan to hurt others: No Plan Physical Exam 2 Vital Signs: Vital Signs: Last Vital Signs Temp 97.8 F 10/13/24 20:00 Pulse 94 10/13/24 20:00 Resp 25 H 10/13/24 20:00 BP 136/57 L 10/13/24 20:00 Pulse Ox 97 10/13/24 20:00 O2 Del Method Room Air 10/13/24 20:00 BMI result Body Mass Index 18.0 Appearance: Alert. Oriented X3. No acute distress. Eyes: No pallor or icterus ENT: Pharynx normal. Oral Mucosa moist Neck: Normal inspection. Neck supple. CVS: Normal heart rate and rhythm. Pulses normal. No murmur rub or gallop Respiratory: No respiratory distress. Equal air entry bilateral, no wheezing/rales/rhonchi Abdomen: Soft and nontender. Bowel sounds are present, no mass palpable, no CVA tenderness Skin: Skin warm and dry. Normal skin color. Normal skin turgor. Extremities: No lower extremity edema. No calf tenderness Neuro: Oriented X 3. Residual lower extremity weak No sensory deficit.No cerebellar signs , cranial nerves II-XII intact Course Course Course Narrative: This is a Rapid Medical Exam performed in triage by Aniya Colbert PA-C. Full HPI, ROS and PE to be performed by primary ED provider. 84yo F w/PMHx MS, hypothyroid, presenting to the ED c/o fast & irregular HR with some SOB x this morning at 8AM (states rate was 160 on home monitor). Admits to hx intermittent A.fib in the past. Not on AC. denies CP PE: in wheelchair, nontoxic appearing, talking in complete sentences Plan: EKG, labs, CXR, viral testing Medications Administered Discontinued Medications Generic Name Dose Route Start Last Admin Trade Name Benedict PRN Reason Stop Dose Admin Aspirin 81 mg 10/13/24 19:49 10/13/24 20:02 Aspirin Enteric Coated 81 Mg Tablet.Dr BROWN 10/13/24 19:50 81 mg ONCE ONE Administration Medical Decision Making Medical Decision Making [facility] Narrative: Patient has spontaneous atrial fibrillation with spontaneous resolution incidentally noted to have increased WBC count platelet count etiology not clear 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 Denney on eviction specialist like to follow up in as outpatient on Tuesday Lab Data [facility] Lab Attestation statement: I reviewed the patient's lab results. 10/13/24 17:02 10/13/24 17:02 Labs: Lab Results 11/23/24 11/23/24 Range/Units 17:02 17:59 WBC 161.3 H* (4.8-10.8) X10*3/uL RBC 3.86 L (4.20-5.50) X10*6/uL Hgb 11.9 L (12.0-16.0) g/dl Hct 35.2 L (37.0-47.0) % MCV 91.2 (80.0-98.0) fL MCH 30.8 (27.0-33.0) pg MCHC 33.8 (31.0-35.0) g/dl RDW 15.9 (11.0-16.0) % Plt Count 831 H (160-400) X10*3/uL MPV 9.1 L (9.4-12.3) fL Immature Gran % (Auto) Cancelled Neut % (Auto) Cancelled Lymph % (Auto) Cancelled Stearns % (Auto) Cancelled Eos % (Auto) Cancelled Baso % (Auto) Cancelled Lymph # (Auto) Cancelled Stearns # (Auto) Cancelled Eos # (Auto) Cancelled Baso # (Auto) Cancelled Abs Immat Gran (auto) Cancelled Absolute Neuts (auto) Cancelled Absolute Nucleated RBC 0.220 H (0.0-0.012) X10*3/uL Nucleated RBC % (auto) 0.1 (0.0-0.2) /100WBC Neutrophils % (Manual) 59 (45-73) % Band Neutrophils % 22 H (3-5) % Lymphocytes % (Manual) 4 L (20-40) % Monocytes % (Manual) 1 L (2-11) % Eosinophils % (Manual) 3 (0-4) % Basophils % (Manual) 2 (0-2) % Metamyelocytes % 4 % Myelocytes % 5 % Abs Neuts (Manual) 130.7 H (2.0-8.3) X10*3/uL Lymphocytes # (Manual) 6.5 H (1.2-4.9) X10*3/uL Monocytes # (Manual) 1.6 H (0.1-1.2) X10*3/uL Eosinophils # (Manual) 4.8 H (0.0-0.4) X10*3/uL Basophils # (Manual) 3.2 H (0.0-0.2) X10*3/uL Metamyelocytes # 6.5 X10*3/uL Myelocytes # 8.1 X10*/uL Nucleated RBCs 1 H (0-0) /100WBC Platelet Estimate INCREASED (NORMAL) Plt Morphology Comment NORMAL RBC Morphology NORMAL PT 11.7 (10.9-12.4) SEC INR 1.0 (0.9-1.1) Sodium 139 (135-145) mmol/L Potassium 3.8 (3.3-5.1) mmol/L Chloride 104 (96-108) mmol/L Carbon Dioxide 25 (22-29) mmol/L Anion Gap 14 (12-20) BUN 17 H (9-16) mg/dL Creatinine 0.75 (0.5-1.4) mg/dL Estim Creat Clear Calc 43.5 Estimated GFR > 60 Random Glucose 82 (60-115) mg/dL Lactic Acid 1.6 (0.5-2.0) mmol/L Calcium 8.6 (8.4-10.2) mg/dL Magnesium 1.9 (1.6-2.6) mg/dL Total Bilirubin 0.4 (0.0-1.0) mg/dL Direct Bilirubin 0.2 (0.0-0.5) mg/dL AST 32 H (5-31) U/L ALT 11 (0-31) U/L Alkaline Phosphatase 96 (39-117) U/L Troponin I High Sens 12.1 (<3.5-17.0) ng/L B-Natriuretic Peptide 175 H (<100) pg/mL Total Protein 6.0 L (6.5-8.0) g/dL Albumin 3.4 L (3.5-5.0) g/dL TSH 0.09 L (0.32-4.0) uIU/mL Free T4 1.57 (0.71-1.85) ng/dL Influenza Type A (PCR) NEGATIVE (Negative) Influenza Type B (PCR) NEGATIVE (Negative) RSV RNA Qual (PCR) NEGATIVE (Negative) SARS-CoV-2 RNA (RT-PCR) NEGATIVE (Negative) Independent Interpretation I performed an independent interpretation of an: EKG Interpretation: Normal sinus rhythm heart rate 91 beats per minute normal intervals normal axis no acute STT wave changes no acute ischemia Discharge Plan Discharge Clinical Impression: Atrial fibrillation, Leukocytosis Patient Disposition: Home, Self-Care Instructions: A-fib (Atrial Fibrillation) (DC), Leukocytosis (ED) Additional Instructions: Take baby aspirin daily 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
--- NOTE | 2024-10-13 16:45 | ECG_ITS ---
Test Reason : PALPITATIONS Blood Pressure : / mmHG Vent. Rate : 091 BPM Atrial Rate : 091 BPM P-R Int : 158 ms QRS Dur : 068 ms QT Int : 376 ms P-R-T Axes : 101 003 043 degrees QTc Int : 462 ms Normal sinus rhythm Normal ECG No previous ECGs available Referred By: Aniya Colbert Electronically Signed By:HECTOR LOPEZ MD
[2024-10-13 17:09] LABS: Hematocrit 35.2 % (37.0-47.0); Hemoglobin 11.9 g/dl (12.0-16.0); Mean Corpuscular HGB Conc 33.8 g/dl (31.0-35.0); Mean Corpuscular Hemoglobin 30.8 pg (27.0-33.0); Mean Corpuscular Volume 91.2 fL (80.0-98.0); Mean Platelet Volume 9.1 fL (9.4-12.3); NRBC Pct Auto 0.1 /100WBC (0.0-0.2); Platelet Count 831 X10*3/uL (160-400); Red Blood Count 3.86 X10*6/uL (4.20-5.50); Red Cell Distribution Width 15.9 % (11.0-16.0)
[2024-10-13 17:19] LABS: Prothrombin Time 11.7 SEC (10.9-12.4)
[2024-10-13 17:27] LABS: White Blood Count 161.3 X10*3/uL (4.8-10.8)
[2024-10-13 17:35] LABS: Neutrophils Percent Manual 59 % (45-73)
[2024-10-13 17:38] LABS: Band Neutrophils Percent 22 % (3-5); Basophils Abs Manual 3.2 X10*3/uL (0.0-0.2); Basophils Percent Manual 2 % (0-2); Eosinophils Absolute Manual 4.8 X10*3/uL (0.0-0.4); Eosinophils Percent Manual 3 % (0-4); Lymphocytes Absolute Manual 6.5 X10*3/uL (1.2-4.9); Lymphocytes Percent Manual 4 % (20-40); Metamyelocytes Absolute 6.5 X10*3/uL; Metamyelocytes Percent 4 %; Monocytes Absolute Manual 1.6 X10*3/uL (0.1-1.2); Monocytes Percent Manual 1 % (2-11); Myelocytes Absolute 8.1 X10*/uL; Myelocytes Percent 5 %; Neutrophils Absolute Manual 130.7 X10*3/uL (2.0-8.3); Nucleated Red Blood Cells 1 /100WBC (0-0)
[2024-10-13 17:39] LABS: RBC Morphology NORMAL
[2024-10-13 17:40] LABS: Platelet Estimate INCREASED (NORMAL); Platelet Morphology Comment NORMAL
[2024-10-13 17:41] LABS: B Type Natriuretic Peptide 175 pg/mL (<100)
[2024-10-13 17:44] LABS: Alanine Aminotransferase 11 U/L (0-31); Albumin Level 3.4 g/dL (3.5-5.0); Alkaline Phosphatase 96 U/L (39-117); Anion Gap 14 (12-20); Aspartate Amino Transferase 32 U/L (5-31); Bilirubin Direct 0.2 mg/dL (0.0-0.5); Bilirubin Total 0.4 mg/dL (0.0-1.0); Blood Urea Nitrogen 17 mg/dL (9-16); Calcium 8.6 mg/dL (8.4-10.2); Carbon Dioxide 25 mmol/L (22-29); Chloride 104 mmol/L (96-108); Creatinine Clr Calc Pharmacy 43.5; Estimated Glomerular Filt Rate > 60; Glucose Random 82 mg/dL (60-115); Magnesium 1.9 mg/dL (1.6-2.6); Potassium 3.8 mmol/L (3.3-5.1); Sodium 139 mmol/L (135-145)
[2024-10-13 17:46] LABS: Troponin-I High Sensitivity 12.1 ng/L (<3.5-17.0)
[2024-10-13 18:00] LABS: TSH reflex Free T4 0.09 uIU/mL (0.32-4.0)
[2024-10-13 18:05] LABS: Influenza A PCR NEGATIVE (Negative); Influenza B PCR NEGATIVE (Negative); Resp Syncy Virus RNA Qual PCR NEGATIVE (Negative); SARS COV2 PCR INHOUSE NEGATIVE (Negative)
[2024-10-13 18:23] LABS: Lactic Acid 1.6 mmol/L (0.5-2.0)
[2024-10-13 18:53] LABS: Free T4 (Free Thyroxine) 1.57 ng/dL (0.71-1.85)
[2024-10-13 19:20] VITALS: BP 136/57; PULSE 94; RESP 25; TEMP 36.6; O2SAT 97
[2024-10-13 20:00] VITALS: BP 136/57; PULSE 94; RESP 25; TEMP 36.6; O2SAT 97
[2024-10-13] MEDS: Aspirin Enteric Coated 81 MG TABLET.DR PO (20:02)
== END 2024-10-13 20:12 | disposition home or self-care (01) ==
PROVIDERS: Physician Assistant; Emergency Provider Internal Medicine; PCP Internal Medicine
DX: I48.0 Paroxysmal atrial fibrillation (principal); D72.829 Elevated white blood cell count, unspecified; G35 Multiple sclerosis; Z79.899 Other long term (current) drug therapy
CPT/HCPCS: 0241U; 36415; 71045; 80048; 80076; 83605; 83735; 83880; 84439; 84443; 84484; 85007; 85027; 85610; 87040; 93005; 99283; 99285

== ENCOUNTER → 2024-10-13 16:45 | Outpatient (BNV) | payer MEDICARE, OTHER, SELFPAY | PROVIDERS: Emergency Provider Internal Medicine; PCP Internal Medicine; Visit Provider Internal Medicine Cardiovascular Disease | DX: R00.2 Palpitations (principal) | CPT/HCPCS: 93010 ==